=== PATIENT | female | born 2005 | race Hispanic/Latino ===

== ENCOUNTER 2025-05-12 16:47 | Emergency (ER) | payer SELFPAY ==
[~2025-05-12] VITALS: Ht 157.5 cm; Wt 40.8 kg
[2025-05-12] MEDS: 0.9%NACL 1000ML 1,000 ML IV SCH (17:07)
--- NOTE | 2025-05-12 17:07 | NUR ---
PATIENT BEGAN TO STATE THE URGE TO PUSH, REPEAT PELVIC EXAM DONE BY DR. CHAMPION AT THIS TIME AND STATES SHE IS 3 CM DILATED AT THIS TIME. DELIVERY TRAY SET UP AT THIS TIME./GREY
--- NOTE | 2025-05-12 17:13 | NUR ---
RE[place] TO ADDISON [place] [facility] [place] PSYCHOLOGY INSTRUCTOR AWARE AND [facility] CODE 3 TRANSFER HAD BEEN INITIATED./GREY
--- NOTE | 2025-05-12 17:18 | NUR ---
DR. CHAMPION AT BEDSIDE STATED PATIENT IS FULLY DIALTED AT THIS TIME./GREY
[2025-05-12 17:21] LABS: IMMATURE GRANULOCYTE ABSOLUTE 0.14 K/uL (0-1); NUCLEATED RED BLOOD CELLS 0.0 % (0.0-0.19); PLATELET COUNT (AUTO) 389 K/uL (130-400); RED BLOOD CELL COUNT(AUTO) 3.56 MIL/uL (4.00-5.50); RED CELL DISTRIBUTION WIDTH 12.9 % (11.0-15.5); WHITE BLOOD COUNT (AUTO) 16.3 K/uL (4.8-10.8)
--- NOTE | 2025-05-12 17:28 | NUR ---
CHILD HAS BEEN DELIVERED AT THIS TIME./GREY
[2025-05-12 17:31] LABS: CREATININE 0.8 mg/dL (0.5-1.0); GLOMERULAR FILTR. RATE CALC 107.0 mL/min (>90); GLUCOSE,RANDOM 121.0 mg/dL (70-105); SODIUM SERUM 141.0 mmol/L (136-145); UREA NITROGEN, BLOOD 6.0 mg/dL (7-18)
--- NOTE | 2025-05-12 17:35 | NUR ---
FUNDAL MASSAGE INITIATED AT THIS TIME. DR. CHAMPION AT BEDSIDE SUTURING FOLLOWING [facility] DELIVERY.
--- NOTE | 2025-05-12 17:35 | NUR ---
Abeba fields in [facility] - 05/12/25 at 1819 by [email or web address] FUNDAL MASSAGE INITIATED AT THIS TIME, DR. CHAMPION AT BEDSIDE SUTURING.
[2025-05-12 17:57] LABS: HCG,QUANTITATIVE 18012.0 mIU/mL (0-5)
[2025-05-12 18:00] VITALS: BP 110/56; PULSE 77; RESP 19; TEMP 97.9; O2SAT 99
--- NOTE | 2025-05-12 18:00 | NUR ---
[facility] GIVEN TO EMS FOR DELIVERY TO L&D UNIT UPON ARRIVAL.
[2025-05-12] MEDS: LIDOCAINE HCL 1% 20 ML VIAL ONE (18:01)
--- NOTE | 2025-05-12 18:23 | ERN ---
General Chief Complaint: OB>20 weeks gest. Stated Complaint: OB, WATER BROKE Time Seen by MD: 16:53 Source: patient History of Present Illness Initial Comments Patient is a 19-year-old female coming in with the abdominal pain abdominal distention. Patient states he is a unknown last menstrual. No care. Allergies: Coded Allergies: No Known Drug Allergies (Unverified Allergy, Unknown, 05/12/25) Past Medical History Past Medical History: Unable to Obtain Past Surgical History: Unknown Female( History) : 2 Para: 1 Aborts: 0 ROS Dictation CONSTITUTIONAL: No chills, no fever, no weakness, no diaphoresis, no malaise. HEAD/FACE: No signs of trauma. EENT: No eye pain, no blurred vision, no tearing, no double vision, no ear pain, no ear discharge, no nose pain, no nasal congestion, no throat pain, no throat swelling, no mouth pain. RESPIRATORY: No cough, no orthopnea, no SOB, no stridor, no wheezing. CARDIOVASCULAR: No chest pain, no edema, no palpitations, no syncope. GASTROINTESTINAL/ABDOMINAL: abdominal pain, no constipation, no diarrhea, no nausea, no vomiting. GENITOURINARY: No abnormal discharge, no dysuria, no frequent urination, no hematuria. No complaints of pain in the genitals. MUSCULOSKELETAL: No back pain, no gout, no joint pain, no joint swelling, no muscle pain, no muscle stiffness, no neck pain. INTEGUMENTARY: No change in color, no change in hair/nails, no dryness, no lesion, no lumps, no rash. NEUROLOGICAL/PSYCH: No anxiety, not depressed, no emotional problem, no headache, no numbness, no pre-existing deficit, no history of seizures, no tremors, no weakness. HEMATOLOGIC/LYMPHATIC: Not anemic, no history of blood clots, no apparent bleeding, no bruising, glands not swollen. All Systems Negative, Except as Noted. Physical Exam Physical Exam Dictation VITAL SIGNS: Reviewed. GENERAL APPEARANCE: Alert, oriented x3, no acute distress, obese. HEAD AND FACE: Non-traumatic. EYES: PERRL, pink conjunctivas, eyelid no trauma, anterior chamber clear. EARS: Pinnas intact and no signs of trauma or erythema. Ear canals clear and no discharge. TMs no erythema. NOSE: No discharge, no bleeding. OROPHARYNX: Mouth normal, teeth no caries, tongue pink. Pharynx clear, no erythema. Tonsils no exudates, no abscesses noted. Mucous membrane moist. NECK: Supple, non-tender, no thyromegaly, no masses, no JVD, no bruits. BREAST: Deferred. CHEST: No tenderness, no crepitus, no paradoxical movement, no retractions. LUNGS: Clear, well-ventilated, symmetric, no rales, no wheezing, no rhonchi, no stridor, good breath sounds bilaterally. HEART: Regular rate, regular rhythm, no murmur, no gallops. VASCULAR: No peripheral edema. ABDOMEN: , Soft, positive bowel sounds, distended, no guarding, nontender, no rebound, no masses no hepatomegaly, no splenomegaly, no Ritter's sign, no hernias. RECTAL: Deferred. GENITAL: Deferred. NEUROLOGICAL: Normal speech, gross motor function intact, gross sensory function intact. MUSCULOSKELETAL: Neck nontender, full range of motion, back nontender, full r sandra of motion. EXTREMITIES: Nontender, full range of motion. SKIN: Color pink, dry, no turgor, no rash, no lacerations, no abrasions, no contusions. LYMPHATICS: Deferred. Results Laboratory and Microbiology Lab and Micro Result Laboratory Tests Test 05/12/25 17:11 White Blood Count 16.3 K/uL (4.8-10.8) H Red Blood Count 3.56 MIL/uL (4.00-5.50) L Hemoglobin 10.1 g/dL (12.0-16.0) L Hematocrit 30.1 % (36-48) L Mean Corpuscular Volume 84.6 fL (80-100) Mean Corpuscular Hemoglobin 28.4 pg (27.0-33.0) Mean Corpuscular Hemoglobin Concent 33.6 g/dL (32.0-36.0) Red Cell Distribution Width 12.9 % (11.0-15.5) Platelet Count 389 K/uL (130-400) Mean Platelet Volume 8.8 fL (7.5-10.5) Immature Granulocyte % (Auto) 0.9 % (0-1) Neutrophils (%) (Auto) 87.5 % (40.0-77.0) H Lymphocytes (%) (Auto) 6.9 % (21.0-51.0) L Monocytes (%) (Auto) 4.4 % (3.0-13.0) Eosinophils (%) (Auto) 0.1 % (0.0-8.0) Basophils (%) (Auto) 0.2 % (0.0-5.0) Neutrophils # (Auto) 14.3 K/uL (1.8-7.7) H Lymphocytes # (Auto) 1.1 K/uL (1.0-4.8) Monocytes # (Auto) 0.7 K/uL (0.1-1.0) Eosinophils # (Auto) 0.02 K/uL (0.00-0.70) Basophils # (Auto) 0.04 K/uL (0.00-0.20) Absolute Immature Granulocyte (auto 0.14 K/uL (0-1) Nucleated Red Blood Cells 0.0 % (0.0-0.19) White Cell Morphology Comment See comments Sodium Level 141 mmol/L (136-145) Potassium Level 3.4 mmol/L (3.5-5.1) L Chloride Level 108 mmol/L (101-111) Carbon Dioxide Level 22 mmol/L (21-32) Blood Urea Nitrogen 6 mg/dL (7-18) L Creatinine 0.8 mg/dL (0.5-1.0) Glomerular Filtration Rate Calc 107 mL/min (>90) Random Glucose 121 mg/dL (70-105) H Total Calcium 8.2 mg/dL (8.5-10.1) L Serum Test, Qualitative POSITIVE (NEGATIVE) H MDM MDM: Differential diagnosis: Vaginal delivery, chorioamnionitis Rationale: Tests considered and ordered secondary to shared decision making include: labs, ECG and radiology Previous outside records reviewed: Old ER visits. Risk of complication and/or morbidity or mortality of patient management: None Medications-Per medication reconciliation Need for hospitalization: Patient does meet criteria for hospitalization. Need for emergency major/minor surgery: No There are no social concerns with this patient. Prescription drug management Prescriptions will include symptomatic care Patient's prior external medical records from other ER visits were reviewed by me as indicated. Prior testing and results from previous visits were reviewed. Prior tests were taken into account with medical decision making and resource utilization, independent historian/historians were used to obtain complete medical history. I independently interpreted the test that were performed, results were reviewed by me and considered findings on radiology if ordered. Medical management and examination interpretation discussions were had by me with other qualified healthcare professionals as indicated for the patient's care. Patient will be transferred to [facility] with the child ED Course Orders Procedure Category Date Status Time Us Ob >14 Weeks US 05/12/25 Taken 16:54 Cbc With Differential LAB 05/12/25 Complete 16:55 Basic Metabolic Panel LAB 05/12/25 In Process 16:55 Testing, LAB 05/12/25 Complete Serum Hcg 16:55 Hcg,Quantitative LAB 05/12/25 In Process 16:55 Cefazolin Sodium PHA 05/12/25 In Process (Ancef) 17:00 0.9%Nacl 1000ml (Ns PHA 05/12/25 In Process 1000ml) 18:30 Morphine 2mg Syg PHA 05/12/25 Complete (Morphine 2mg Syg) 17:30 Ondansetron 4mg Inj PHA 05/12/25 Complete (Zofran 4mg Inj) 17:30 Ondansetron 4mg Inj PHA 05/12/25 Complete (Zofran 4mg Inj) 17:21 Morphine 2mg Syg PHA 05/12/25 Complete (Morphine 2mg Syg) 17:21 Lidocaine Hcl 1% 20ml PHA 05/12/25 Complete Vial (Lidocaine Hc 17:24 Current Medications Medications (Trade) Dose Ordered Sig/Sandie Route PRN Reason Start Time Stop Time Status Last Admin Dose Admin Cefazolin Sodium (Ancef) 2 gm Q8H IVPB 05/12/25 17:00 05/22/25 16:59 05/12/25 17:07 Lidocaine HCl (Lidocaine HCl 1% 20ml Vial) 20 ml STK-MED ONCE .ROUTE 05/12/25 17:24 05/12/25 17:24 DC Morphine Sulfate (morPHINE 2MG SYG) 2 mg ONCE ONCE IVP 05/12/25 17:30 05/12/25 17:31 DC 05/12/25 17:23 Morphine Sulfate (morPHINE 2MG SYG) 2 mg STK-MED ONCE .ROUTE 05/12/25 17:21 05/12/25 17:22 DC Ondansetron HCl (zoFRAN 4MG INJ) 4 mg ONCE ONCE IVP 05/12/25 17:30 8/3/25 17:31 DC 05/12/25 17:23 Ondansetron HCl (zoFRAN 4MG INJ) 4 mg STK-MED ONCE .ROUTE 05/12/25 17:21 05/12/25 17:21 DC Sodium Chloride 1,000 ml @ 0 mls/hr Q0M IV 05/12/25 18:30 06/11/25 18:29 05/12/25 17:07 Vital Signs Date Time Temp Pulse Resp B/P (MAP) Pulse Ox O2 Delivery O2 Flow Rate FiO2 05/12/25 17:25 72 19 137/72 99 Room Air* 0 05/12/25 16:54 97.9 102 20 126/79 98 Room Air* 0 05/12/25 16:50 Room Air 0 Additional Procedures Additional Procedures : Progress at unknown date Vaginal delivery laceration repaired delivered a male baby DX & DISP Disposition: Transfer Decision to Admit Time: 18:22 Departure Impression: Primary Impression: 2, currently Additional Impression: Vaginal delivery Condition: Stable Referrals: SELF,REFERRAL (PCP) KAYLAN CHAMPION MD May 12, 2025 18:23
--- NOTE | 2025-05-12 18:38 | HMCIMG ---
EXAM: Obstetric ultrasound limited transabdominal INDICATION: Vaginal bleeding TECHNIQUE: Pina scale and color doppler flow of the pelvis. REFERENCE EXAMINATION: None FINDINGS: Single intrauterine gestation in cephalic position. Placenta is anterior. Cardiac activity noted. movement noted. Measurements as follows: Biparietal diameter: 8.25 cm, EGA 33 weeks 2 days; Head circumference: 30.72 cm, EGA 34 weeks 2 days; Abdominal circumference: 33.96 cm, EGA 37 weeks 6 days; Femur length: 6.36 cm, EGA 32 weeks 6 days; Amniotic fluid index is low. IMPRESSION: Single intrauterine with corresponding gestational age of 34 weeks and 4 days. Low ADRIAN.. /[place]
== END 2025-05-12 18:10 | disposition short-term general hospital (02) ==
LOC: EDH 16:47
DX: O46.93 Antepartum hemorrhage, unspecified, third trimester (principal); Z3A.34 34 weeks gestation of pregnancy
CPT/HCPCS: 99285; 96365; 76805; 96375; 80048; 84703; 84702; 85025; 36415; J2270; J7030; J2405; J0690